=== PATIENT | female | born 1960 | race Caucasian/White ===

== ENCOUNTER 2020-10-25 13:42 | Inpatient (IN) | payer MEDICAID, SELFPAY ==
[~2020-10-25] VITALS: Ht 162.6 cm; Wt 90.7 kg
[2020-10-25 13:51] VITALS: BP_SYST 111
--- NOTE | 2020-10-25 13:51 | NUR ---
Placed in room 05 . Placed on cafeteria monitor, blood pressure machine and pulse oximeter. To gown for exam. Side rails up.
--- NOTE | 2020-10-25 13:55 | NUR ---
Pt came to ER with R leg swelling and pain when she bears weight rates pain 01/03. Pt resting in [facility] at this time, no distress noted, awaiting MD.
--- NOTE | 2020-10-25 14:00 | NUR ---
ER at bedside examining patient.
[2020-10-25] MEDS ORDERED: RIVA20TA PO ×2 (14:59)
[2020-10-25] MEDS ORDERED: RIVA15TA PO ×2 (14:59)
[2020-10-25] MEDS ORDERED: RIVAROXABAN 15 MG TABLET PO ONE (15:00)
--- NOTE | 2020-10-25 15:27 | NUR ---
Pt resting in rney comfortably no distress or complaints at this time.
[2020-10-25 15:40] LABS: BASOPHILS % (AUTO) 0.4 % (0.0-2.0); EOSINOPHILS # (AUTO) 0.1 K/uL (0.0-0.4); EOSINOPHILS % (AUTO) 1.1 % (0.0-4.0); LYMPHOCYTES % (AUTO) 12.3 % (20.5-51.5); MEAN CORPUSCULAR HEMOGLOBIN 19 pg (27-31); MEAN CORPUSCULAR HGB CONC 29 % (32-36); MEAN CORPUSCULAR VOLUME 66 fL (79.0-98.0); MONOCYTES # (AUTO) 0.9 K/uL (0.0-1.0); MONOCYTES % (AUTO) 10.8 % (1.7-9.3); NEUTROPHILS # (AUTO) 6.2 K/uL (1.8-7.7); NEUTROPHILS % (AUTO) 75.4 % (40.0-70.0); PLATELET COUNT (AUTO) 209 K/uL (130-430); RED BLOOD CELL COUNT(AUTO) 3.04 MIL/uL (4.2-6.2); RED CELL DISTRIBUTION WIDTH 21.3 % (9.0-15.0); WHITE BLOOD COUNT (AUTO) 8.2 K/uL (4.8-10.8)
[2020-10-25 15:44] LABS: INR 1.1 (0.8-1.2); PROTHROMBIN TIME 11.2 SECS (9.5-12.5)
[2020-10-25 15:46] LABS: HEMATOCRIT 20.2 % (36-48); HEMOGLOBIN 5.9 g/dL (12.0-16.0)
[2020-10-25 15:47] LABS: CALCIUM 8.6 mg/dL (8.4-11.0); CREATININE 1.01 mg/dL (0.55-1.30); POTASSIUM 3.4 mmol/L (3.5-5.1)
[2020-10-25 15:53] LABS: ALBUMIN 2.9 g/dL (3.4-4.8); TOTAL BILIRUBIN 0.6 mg/dL (0.0-1.0)
[2020-10-25 16:26] LABS: C-REACTIVE PROTEIN QUANT 13.4 mg/dL (0-0.5)
--- NOTE | 2020-10-25 17:30 | NUR ---
No meds per pt
--- NOTE | 2020-10-25 17:33 | NUR ---
Patient will be admitted to care of Susana. Admitted to Tele unit. Will go to room 101B. Belongings list completed. Complete and up to date summary report printed. SBAR report to be given at bedside with opportunity for questions.
[2020-10-25 18:00] VITALS: BP_SYST 115
[2020-10-25] MEDS ORDERED: ACETAMINOPHEN 325 MG TABLET PO PRN (18:00)
[2020-10-25] MEDS ORDERED: ALBUTEROL SULFATE 0.083% 2.5 MG/3 ML VIAL.NEB INH PRN (18:00)
[2020-10-25] MEDS ORDERED: MORPHINE 4 MG INJ. 4 MG/ML VIAL IVP PRN (18:00)
[2020-10-25] MEDS ORDERED: HYDROcodone/ACETAMIN 5-325 MG TAB (NORCO/ VICODIN) PO PRN (18:00)
[2020-10-25 18:17] VITALS: BP_SYST 133
[2020-10-25] MEDS ORDERED: NACL 0.9% 1,000 ML IV ONE (18:30)
--- NOTE | 2020-10-25 19:00 | NUR ---
Note Pt arrived on floor from ED at 1800. Pt ambulated from gurney to bed independently. Pt oriented to room and nursing routines and procedures. Pt wanted to eat her dinner before blood transfusion to be started. Call light within reach.
--- NOTE | 2020-10-25 19:30 | NUR ---
OPENING NOTES: Received report from dayshift nurse. Patient is in bed, alert and oriented with no s/s of distress or discomfort. Patient is on room air, tolerating well. Ensured all safety precautions. Bed is locked and in the lowest position with alarm on. Call light within reach.
[2020-10-25 20:00] VITALS: BP_SYST 117
[2020-10-25 20:17] VITALS: BP_SYST 117
--- NOTE | 2020-10-25 21:20 | NUR ---
DR. SIFUENTES AT BEDSIDE PER DR. SIFUENTES CT TO BE DONE IN AM - RADIOLOGY NOTIFIED
[2020-10-25 21:52] LABS: TOTAL IRON BIND. CAPACITY 452 ug/dL (250-450)
[2020-10-25] MEDS: PANTOPRAZOLE SODIUM 40 MG/VIAL (PROTONIX) IVP SCH (22:36)
[2020-10-25] MEDS: ENOXAPARIN SODIUM 100 MG/ML SYRINGE SUBCUT SCH (22:38)
--- NOTE | 2020-10-25 23:15 | NUR ---
BT INITIATION: Consent signed per agreeing to administration of blood. Blood has been type and crossmatched. Blood sent from blood bank. Information on unit of blood checked against patient wristband at bedside by two nurses. All information matches. Patient or responsible constitution party informed of potential complications associated with blood transfusion. Informed of possible transfusion reaction symptoms. Aware of need to notify nurse at once of itching, shortness of breath, flushing, feeling of impending doom, or other symptoms not previously present. Vital signs taken within 5 minutes prior to initiation of transfusion. RN will remain with patient for first 15 minutes of transfusion at which time vital signs will be re-assessed.
[2020-10-26] VITALS: BP_SYST 136
--- NOTE | 2020-10-26 03:45 | NUR ---
BT INITIATION: Consent signed per agreeing to administration of blood. Blood has been type and crossmatched. Blood sent from blood bank. Information on unit of blood checked against patient wristband at bedside by two nurses. All information matches. Patient or responsible republican informed of potential complications associated with blood transfusion. Informed of possible transfusion reaction symptoms. Aware of need to notify nurse at once of itching, shortness of breath, flushing, feeling of impending doom, or other symptoms not previously present. Vital signs taken within 5 minutes prior to initiation of transfusion. RN will remain with patient for first 15 minutes of transfusion at which time vital signs will be re-assessed.
--- NOTE | 2020-10-26 04:55 | NUR ---
CONSULT REASON CONSULT: DVT AND ANEMIA PERSON I SPOKE WITH: TIARA CONSULTING PHYSICIAN: DR. RIVERS RELAY SHOP SUPERVISOR PHONE NUMBER: [phone] ORDERING PHYSICIAN: DR. SIFUENTES
--- NOTE | 2020-10-26 07:00 | NUR ---
CLOSING NOTES: Patient is laying in bed, alert and oriented. She is in stable condition, tolerated blood transfusion well as ordered. All needs were met throughout shift. Will endorse to dayshift nurse.
[2020-10-26] MEDS ORDERED: IOHEXOL 350 mgI/mL, 150 ML INFUS..BTL IV ONE (07:40)
[2020-10-26 07:59] LABS: BASOPHILS # (AUTO) 0.1 K/uL (0.0-0.2); BASOPHILS % (AUTO) 0.7 % (0.0-2.0); EOSINOPHILS # (AUTO) 0.2 K/uL (0.0-0.4); HEMATOCRIT 26.5 % (36-48); HEMOGLOBIN 8.1 g/dL (12.0-16.0); LYMPHOCYTES # (AUTO) 0.9 K/uL (1.0-5.5); LYMPHOCYTES % (AUTO) 11.2 % (20.5-51.5); MEAN CORPUSCULAR HEMOGLOBIN 21 pg (27-31); MEAN CORPUSCULAR HGB CONC 31 % (32-36); MEAN CORPUSCULAR VOLUME 70 fL (79.0-98.0); MONOCYTES # (AUTO) 0.8 K/uL (0.0-1.0); MONOCYTES % (AUTO) 9.6 % (1.7-9.3); NEUTROPHILS # (AUTO) 6.2 K/uL (1.8-7.7); NEUTROPHILS % (AUTO) 75.5 % (40.0-70.0); PLATELET COUNT (AUTO) 211 K/uL (130-430); RED CELL DISTRIBUTION WIDTH 24.1 % (9.0-15.0); WHITE BLOOD COUNT (AUTO) 8.2 K/uL (4.8-10.8)
[2020-10-26 08:00] VITALS: BP_SYST 117
[2020-10-26 08:23] LABS: ALBUMIN 2.8 g/dL (3.4-4.8); CALCIUM 8.4 mg/dL (8.4-11.0); CREATININE 0.7 mg/dL (0.55-1.30); POTASSIUM 3.5 mmol/L (3.5-5.1); TOTAL BILIRUBIN 1.2 mg/dL (0.0-1.0)
[2020-10-26] MEDS ORDERED: *LOVENOX 1MG/KG Q12H/PHARMACY XX ONE (09:00)
--- NOTE | 2020-10-26 09:05 | NUR ---
CONSULTATION PAGED/CALLED Reason for Consultation: [] dvt, anemia Person Who was Notified: [] Charly Consulting Physician: [] DR SALAZAR Train Electronic Technician Specialty: [] CARDIO Ordering Physician: [] DR KAMARA
--- NOTE | 2020-10-26 09:13 | NUR ---
CONSULTATION PAGED/CALLED Reason for Consultation: dvt/anemia Person Who was Notified: heron Consulting Physician: darren krishnamurthy Ordering Physician: ronald jeronimo
[2020-10-26] MEDS ORDERED: GASTROGRAFIN 120 ML ONE ×2 (09:25→12:26)
[2020-10-26] MEDS: ENOXAPARIN SODIUM 100 MG/ML SYRINGE SUBCUT SCH ×2 (09:27→22:06)
[2020-10-26] MEDS: PANTOPRAZOLE SODIUM 40 MG/VIAL (PROTONIX) IVP SCH ×2 (09:28→22:04)
[2020-10-26 11:21] VITALS: BP_SYST 139
[2020-10-26] MEDS ORDERED: IRON DEXTRAN COMPLEX 25 MG in NS 50 ML IV ONE (12:00)
[2020-10-26 13:27] VITALS: BP_SYST 117
[2020-10-26] MEDS: CLINDAMYCIN 300 MG in D5W 50 ML IV SCH ×3 (13:48→23:36)
[2020-10-26 15:23] VITALS: BP_SYST 130
[2020-10-26 20:00] VITALS: BP_SYST 123
[2020-10-27 00:05] VITALS: BP_SYST 130
[2020-10-27] MEDS: CLINDAMYCIN 300 MG in D5W 50 ML IV SCH ×4 (05:37→23:17)
[2020-10-27] MEDS ORDERED: DIATR MEGLU/DIATRIZ SOD 30 ML SOLUTION PO ONE (07:32)
--- NOTE | 2020-10-27 07:53 | NUR ---
Opening note Received report from night nurse. Patient is alert and oriented x 4, sitting up in bed. On room air and tolerating well with no signs of shortness of breath noted. IV is patent, saline locked. Safety precautions in place. Bed locked and in lowest position. Call light within reach. Will continue to monitor.
[2020-10-27 08:00] VITALS: BP_SYST 124
[2020-10-27 08:06] LABS: IMMUNOGLOBULIN A, SERUM 200 mg/dL (87-352)
[2020-10-27 08:23] LABS: TOTAL IRON BIND. CAPACITY 416 ug/dL (250-450)
[2020-10-27] MEDS: ENOXAPARIN SODIUM 100 MG/ML SYRINGE SUBCUT SCH ×2 (09:03→21:22)
[2020-10-27] MEDS: PANTOPRAZOLE SODIUM 40 MG/VIAL (PROTONIX) IVP SCH ×2 (09:03→21:21)
[2020-10-27 09:31] LABS: BASOPHILS # (AUTO) 0.1 K/uL (0.0-0.2); BASOPHILS % (AUTO) 0.9 % (0.0-2.0); EOSINOPHILS # (AUTO) 0.2 K/uL (0.0-0.4); EOSINOPHILS % (AUTO) 3.2 % (0.0-4.0); HEMATOCRIT 27.8 % (36-48); HEMOGLOBIN 8.3 g/dL (12.0-16.0); LYMPHOCYTES # (AUTO) 1.2 K/uL (1.0-5.5); LYMPHOCYTES % (AUTO) 15.8 % (20.5-51.5); MEAN CORPUSCULAR HEMOGLOBIN 21 pg (27-31); MEAN CORPUSCULAR HGB CONC 30 % (32-36); MEAN CORPUSCULAR VOLUME 70 fL (79.0-98.0); MONOCYTES # (AUTO) 0.8 K/uL (0.0-1.0); MONOCYTES % (AUTO) 10.9 % (1.7-9.3); NEUTROPHILS # (AUTO) 5.3 K/uL (1.8-7.7); NEUTROPHILS % (AUTO) 69.2 % (40.0-70.0); PLATELET COUNT (AUTO) 270 K/uL (130-430); RED BLOOD CELL COUNT(AUTO) 3.98 MIL/uL (4.2-6.2); RED CELL DISTRIBUTION WIDTH 24.4 % (9.0-15.0); WHITE BLOOD COUNT (AUTO) 7.7 K/uL (4.8-10.8)
--- NOTE | 2020-10-27 09:45 | NUR ---
CT Patient taken to CT scan of abdomen and pelvis with contrast. Patient in stable condition. Will wait for return to unit.
[2020-10-27] MEDS: IRON DEXTRAN COMPLEX 100 MG in NS 100 ML IV SCH (10:08)
[2020-10-27 11:08] LABS: BILIRUBIN,URINE NEGATIVE (NEGATIVE); BLOOD, URINE NEGATIVE (NEGATIVE); CLARITY/URINE CLEAR (CLEAR); COLOR,URINE YELLOW (YELLOW); GLUCOSE,URINE NEGATIVE (NEGATIVE); KETONES,URINE NEGATIVE (NEGATIVE); LEUKOCYTE ESTERASE ,URINE 3+ (NEGATIVE); NITRITE, URINE NEGATIVE (NEGATIVE); PROTEIN URINE NEGATIVE (NEGATIVE); UROBILINOGEN,URINE 0.2 (0.2-1.0)
[2020-10-27 11:17] VITALS: BP_SYST 121
[2020-10-27 12:33] LABS: BACTERIA,URINE FEW /HPF (None Seen); CALCIUM OXALATE CRYSTALS,UR 0-10 /HPF (None Seen); RBC,URINE 0-3 /HPF (0-3)
[2020-10-27 15:16] VITALS: BP_SYST 130
--- NOTE | 2020-10-27 18:44 | NUR ---
Closing note Patient is alert and oriented x 4, sitting up in bed. On room air and tolerating well with no signs of shortness of breath noted. IV is patent, saline locked. Safety precautions in place. Bed locked and in lowest position. Call light within reach. Will endorse to night nurse.
[2020-10-27 20:00] VITALS: BP_SYST 115
[2020-10-28] VITALS: BP_SYST 124
[2020-10-28] MEDS: CLINDAMYCIN 300 MG in D5W 50 ML IV SCH ×3 (06:38→18:34)
[2020-10-28 06:58] LABS: BASOPHILS # (AUTO) 0.1 K/uL (0.0-0.2); BASOPHILS % (AUTO) 0.7 % (0.0-2.0); EOSINOPHILS # (AUTO) 0.3 K/uL (0.0-0.4); EOSINOPHILS % (AUTO) 4.3 % (0.0-4.0); HEMATOCRIT 29.6 % (36-48); HEMOGLOBIN 8.9 g/dL (12.0-16.0); LYMPHOCYTES # (AUTO) 1.6 K/uL (1.0-5.5); LYMPHOCYTES % (AUTO) 20.8 % (20.5-51.5); MEAN CORPUSCULAR HEMOGLOBIN 21 pg (27-31); MEAN CORPUSCULAR HGB CONC 30 % (32-36); MEAN CORPUSCULAR VOLUME 70 fL (79.0-98.0); MONOCYTES # (AUTO) 0.7 K/uL (0.0-1.0); MONOCYTES % (AUTO) 8.9 % (1.7-9.3); NEUTROPHILS # (AUTO) 5.1 K/uL (1.8-7.7); NEUTROPHILS % (AUTO) 65.3 % (40.0-70.0); PLATELET COUNT (AUTO) 305 K/uL (130-430); RED BLOOD CELL COUNT(AUTO) 4.23 MIL/uL (4.2-6.2); RED CELL DISTRIBUTION WIDTH 24.5 % (9.0-15.0); WHITE BLOOD COUNT (AUTO) 7.9 K/uL (4.8-10.8)
--- NOTE | 2020-10-28 07:03 | NUR ---
Nutrition Update Stanley Scale 18 noted. Pt admitted for Anemia, DVT Diet: Regular BMI: 34.3 kg/m2 RD to follow per nutrition care standards.
[2020-10-28 07:39] LABS: ALBUMIN 2.9 g/dL (3.4-4.8); CALCIUM 8.8 mg/dL (8.4-11.0); CREATININE 0.92 mg/dL (0.55-1.30); POTASSIUM 3.6 mmol/L (3.5-5.1); TOTAL BILIRUBIN 0.5 mg/dL (0.0-1.0)
--- NOTE | 2020-10-28 07:45 | NUR ---
AM NOTES PT IN BED. A/OX4. C/O OF MOD PAIN .IN LEFT LEG. WILL MEDICATE ORDERED. RES EVEN AND UNLABORED. VITALS STABLE . SAFETY/FALL PRECAUTIONS IN PLACE. BED LOCKED IN LOW POSITION.BED ALARM ON.CALL LIGHT WITHIN REACH.RT LEG REDDENED AND SWOLLEN .PEDAL PULSE PRESENT BUT WEAK ON RT LEG. ELEVATED ON PILLOW. ABLE TO WIGGLE TOES. DENIES ANY NUMBNESS OR TINGLING IN LEGS. POC DISCUSSED WITH PT. VERBALIZED UNDERSTANDING.WILL CONTINUE TO MONITOR
[2020-10-28 08:06] LABS: FOLATE (FOLIC ACID) 10.7 ng/mL (>3.0)
[2020-10-28 08:28] VITALS: BP_SYST 123
[2020-10-28 08:50] VITALS: BP_SYST 123
[2020-10-28] MEDS: ENOXAPARIN SODIUM 100 MG/ML SYRINGE SUBCUT SCH (09:13)
[2020-10-28] MEDS: PANTOPRAZOLE SODIUM 40 MG/VIAL (PROTONIX) IVP SCH ×2 (09:14→21:00)
[2020-10-28] MEDS: IRON DEXTRAN COMPLEX 100 MG in NS 100 ML IV SCH (09:24)
[2020-10-28 11:57] VITALS: BP_SYST 133
--- NOTE | 2020-10-28 11:58 | NUR ---
Rounding Note Dr. Clifford seen patient, updated with patient status, explained to pt about the plan of care, pt verbalized understanding. Pt resting comfortably and denies any pain at this time. As per Dr. Clifford, pt can ambulate, encouraged pt to ambulate in hallways and will assist pt with ambulation.
[2020-10-28 17:17] VITALS: BP_SYST 119
--- NOTE | 2020-10-28 17:59 | NUR ---
Rounding Note PT showered, ambulated to restroom, tolerated ambulation well, family at bedside eating dinner, denies any pain or shortness of breath,
--- NOTE | 2020-10-28 18:55 | NUR ---
Closing Note Patient is alert and oriented x 4, sitting up in bed. On room air and tolerating well with no signs of shortness of breath noted. IV is patent, saline locked. Safety precautions in place. Bed locked and in lowest position. Call light within reach. Will endorse to night nurse.
[2020-10-28 19:39] VITALS: BP_SYST 136
[2020-10-28] MEDS: APIXABAN 2.5 MG TABLET PO SCH (20:57)
--- NOTE | 2020-10-28 23:35 | NUR ---
Opening note Received pt. Pt resting in bed with HOB elevated, alert/awake/verbally responsive. ALOC x4. 0 SOB or distress noted, on RA. IV site RFA 20g patent and intact, 0 infiltration noted. Bed locked to lowest position, call light within reach. Safety precaution in place. Will continue to monitor.
[2020-10-29] MEDS: CLINDAMYCIN 300 MG in D5W 50 ML IV SCH ×3 (01:01→12:08)
[2020-10-29 01:05] VITALS: BP_SYST 136
--- NOTE | 2020-10-29 01:55 | NUR ---
Spoke with DR. Tobin. Pt request for lissa SILVA MD agrees.
--- NOTE | 2020-10-29 06:30 | NUR ---
Closing noted Pt resting in bed. Stable with no significant change. 0 c/o discomfort or pain noted. Vitals stable. Able to ambulate to bathroom, IV patent and intact saline locked. Bed to lowest with call light within reach. Safety precaution in place.
[2020-10-29] MEDS: PANTOPRAZOLE SODIUM 40 MG/VIAL (PROTONIX) IVP SCH (08:44)
[2020-10-29] MEDS: APIXABAN 2.5 MG TABLET PO SCH (08:45)
[2020-10-29] MEDS: IRON DEXTRAN COMPLEX 100 MG in NS 100 ML IV SCH (08:46)
[2020-10-29] MEDS ORDERED: DOCUSATE SODIUM 100 MG CAPSULE PO SCH (09:00)
[2020-10-29 09:21] VITALS: BP_SYST 120
--- NOTE | 2020-10-29 09:23 | NUR ---
Opening Note Receive patient AX4, resting in bed calmly, no SOB, vitals stable, bed in lowest position, call alarm within reach, RFA 20 gauge patent and infusing, right leg elevated on pillows and educated on plan of care and verbalized understanding.
[2020-10-29 09:45] LABS: BASOPHILS # (AUTO) 0.1 K/uL (0.0-0.2); BASOPHILS % (AUTO) 1.1 % (0.0-2.0); EOSINOPHILS # (AUTO) 0.3 K/uL (0.0-0.4); EOSINOPHILS % (AUTO) 4.4 % (0.0-4.0); HEMATOCRIT 27.8 % (36-48); HEMOGLOBIN 8.4 g/dL (12.0-16.0); LYMPHOCYTES # (AUTO) 1.2 K/uL (1.0-5.5); LYMPHOCYTES % (AUTO) 18.3 % (20.5-51.5); MEAN CORPUSCULAR HEMOGLOBIN 21 pg (27-31); MEAN CORPUSCULAR HGB CONC 30 % (32-36); MEAN CORPUSCULAR VOLUME 71 fL (79.0-98.0); MONOCYTES # (AUTO) 0.6 K/uL (0.0-1.0); MONOCYTES % (AUTO) 9.2 % (1.7-9.3); NEUTROPHILS # (AUTO) 4.4 K/uL (1.8-7.7); PLATELET COUNT (AUTO) 328 K/uL (130-430); RED BLOOD CELL COUNT(AUTO) 3.94 MIL/uL (4.2-6.2); WHITE BLOOD COUNT (AUTO) 6.6 K/uL (4.8-10.8)
--- NOTE | 2020-10-29 10:45 | NUR ---
Dr. Susana pan regarding labs and orders for discharge home today, will follow up. Addendum: 10/29/20 at 1112 by Silvano Shook RN Spoke with Dr. Meza regarding lab results and discharge home orders - patient is okay to discharge home today, Dr. Meza will call in prescription for Carina to the patient's pharmacy and Dr. Meza stated that he will speak with Dr. Clifford.
[2020-10-29 12:16] VITALS: BP_SYST 124
[2020-10-29 13:51] VITALS: BP_SYST 126
[2020-10-29 15:07] LABS: TRANSGLUTAMINASE IGA < 2 U/mL (0-3)
[2020-10-29 15:13] VITALS: BP_SYST 121
--- NOTE | 2020-10-29 16:15 | NUR ---
D/C Patient Patient given medication reconciliation form and D/C instructions. Exit Care provided. Patient verbalized understanding. MD discussed with patient the results and treatment provided. Patient in stable condition, ID band removed. IV catheter removed, intact and dressing applied, no active bleeding. Dr. Meza called in prescription for Eliquis for pt's preferred pharmacy. Patient educated on pain management. All belongings sent with patient.
[2020-10-30 04:06] LABS: ENDOMYSIAL ANTIBODY IGA Negative (Negative)
--- NOTE | 2020-10-30 08:13 | NUR ---
Disposition 01
== END 2020-10-29 16:15 | disposition home or self-care (01) | DRG 197 ==
LOC: SED 13:42 → STU 17:14 → SMU 17:33 → STU 17:33 → SMU 10-26 09:28
PROVIDERS: ADMIT Internal Medicine Hospice and Palliative Medicine; ATTEND Internal Medicine Hospice and Palliative Medicine
PROC: 30233N1 Transfusion of Nonautologous Red Blood Cells into Peripheral Vein, Percutaneous Approach (ICD-10-PCS; principal; 2020-10-25)
DX: I82.401 Acute embolism and thrombosis of unspecified deep veins of right lower extremity (principal); E44.0 Moderate protein-calorie malnutrition; L03.115 Cellulitis of right lower limb; D50.9 Iron deficiency anemia, unspecified; E66.9 Obesity, unspecified; K59.09 Other constipation; Z20.822 Contact with and (suspected) exposure to COVID-19; Z88.0 Allergy status to penicillin; Z88.2 Allergy status to sulfonamides; Z68.34 Body mass index [BMI] 34.0-34.9, adult; Z87.19 Personal history of other diseases of the digestive system; L03.90 Cellulitis, unspecified; E87.6 Hypokalemia; D63.8 Anemia in other chronic diseases classified elsewhere
CPT/HCPCS: 36415; 36430; 71045; 71275; 74250-TC; 76376; 80053; 81000; 82272; 82607; 82728; 82746; 82784; 83516; 83540; 83550; 83605; 85025; 85044; 85610-TC; 85730-TC; 86140; 86255; 86886; 86900; 86901; 86920; 87086; 93005; 93306; 93971; 94760; 99285; C9113; G0378; J1650; J1750; J3490; J7060; P9021; Q9963; Q9964; Q9967

== ENCOUNTER 2020-11-05 16:24 | Inpatient (IN) | payer MEDICAID, SELFPAY ==
[~2020-11-05] VITALS: Ht 162.6 cm; Wt 88.5 kg
[2020-11-05 16:25] VITALS: BP_SYST 125
--- NOTE | 2020-11-05 16:27 | NUR ---
Patient triaged and placed in waiting room. VSS and patient appears in no acute distress at this time. Accompanied by SELF, awaiting available bed, and MD notified of need for MSE.
--- NOTE | 2020-11-05 16:47 | NUR ---
Artis caputo in [facility] - 11/05/20 at 1903 by PRASHANT US AT BEDSIDE
--- NOTE | 2020-11-05 17:07 | NUR ---
PT CAME TO ER FOR COMPLAINTS OF RIGHT LEG PAIN, SWELLING AND REDNESS. PT STATED SHE CAME INTO ER 15 DAYS AGO FOR THE SAME THING AND WAS ADMIITED. PT WAS DISCHARGED AND SENT HOME WITH ELIQUIS AND CLINDAMYCIN. PT HAS BEEN TAKING THE MEDS REGULARLY AND COMPLAINS OF WORSENING SYMPTOMS. 10/03 PAIN. -SOB,-CP,- N/V.
[2020-11-05 17:08] LABS: HEMOGLOBIN 9.7 g/dL (12.0-16.0); MONOCYTES # (AUTO) 0.5 K/uL (0.0-1.0)
--- NOTE | 2020-11-05 17:09 | NUR ---
ER at bedside examining patient.
[2020-11-05 17:18] LABS: BASOPHILS # (AUTO) 0.1 K/uL (0.0-0.2); BASOPHILS % (AUTO) 1.1 % (0.0-2.0); EOSINOPHILS # (AUTO) 0.2 K/uL (0.0-0.4); EOSINOPHILS % (AUTO) 2.5 % (0.0-4.0); LYMPHOCYTES # (AUTO) 1.3 K/uL (1.0-5.5); LYMPHOCYTES % (AUTO) 19.6 % (20.5-51.5); MEAN CORPUSCULAR HEMOGLOBIN 22 pg (27-31); MEAN CORPUSCULAR HGB CONC 30 % (32-36); MEAN CORPUSCULAR VOLUME 74 fL (79.0-98.0); MONOCYTES % (AUTO) 8.6 % (1.7-9.3); NEUTROPHILS # (AUTO) 4.4 K/uL (1.8-7.7); NEUTROPHILS % (AUTO) 68.2 % (40.0-70.0); PLATELET COUNT (AUTO) 430 K/uL (130-430); RED BLOOD CELL COUNT(AUTO) 4.34 MIL/uL (4.2-6.2); RED CELL DISTRIBUTION WIDTH 31.4 % (9.0-15.0); WHITE BLOOD COUNT (AUTO) 6.4 K/uL (4.8-10.8)
[2020-11-05 17:20] LABS: CALCIUM 9.4 mg/dL (8.4-11.0); CREATININE 1.01 mg/dL (0.55-1.30); POTASSIUM 4.2 mmol/L (3.5-5.1)
[2020-11-05 17:26] LABS: ALBUMIN 3.5 g/dL (3.4-4.8); TOTAL BILIRUBIN 0.4 mg/dL (0.0-1.0)
[2020-11-05 17:31] LABS: INR 1.1 (0.8-1.2); PROTHROMBIN TIME 10.9 SECS (9.5-12.5)
--- NOTE | 2020-11-05 19:38 | NUR ---
pt is full code
--- NOTE | 2020-11-05 19:40 | NUR ---
BELONGINGS LIST DONE
[2020-11-05] MEDS ORDERED: FERR240T5 PO (19:44)
[2020-11-05] MEDS ORDERED: CLIN75CA2 PO (19:44)
[2020-11-05] MEDS ORDERED: OMEP40CA13 PO (19:44)
[2020-11-05] MEDS ORDERED: APIX5TAB4 PO (19:44)
--- NOTE | 2020-11-05 19:44 | NUR ---
Medication reconciliation completed with information provided by patient. Any prior medication reconciliation on file was reviewed and corrected.
--- NOTE | 2020-11-05 20:54 | NUR ---
Patient will be admitted to care of DR. SIFUENTES. Admitted to MEDSURGE unit. Will go to room 119B. Belongings list completed. Complete and up to date summary report printed. SBAR report to be given at bedside with opportunity for questions.
--- NOTE | 2020-11-05 21:02 | NUR ---
Transfer to [facility]. IV present no sign or symptom of infiltration.
--- NOTE | 2020-11-05 21:02 | NUR ---
# 20 gauge angiocath placed to R FOREARM. Use of asceptic technique. Opsite placed over site. Blood return noted. Blood for lab drawn from site. Flushed with 10 cc of normal saline. No evidence of infiltration noted. Patient tolerated well.
[2020-11-05] MEDS ORDERED: NALOXONE HCL 0.4 MG/ML AMP (NARCAN) IVP PRN (22:45)
[2020-11-05] MEDS ORDERED: MORPHINE 4 MG INJ. 4 MG/ML VIAL IVP PRN (22:45)
[2020-11-05] MEDS ORDERED: ACETAMINOPHEN 325 MG TABLET PO PRN (22:45)
[2020-11-05] MEDS ORDERED: HYDROcodone/ACETAMIN 5-325 MG TAB (NORCO/ VICODIN) PO PRN (22:45)
[2020-11-05] MEDS ORDERED: ALBUTEROL SULFATE 0.083% 2.5 MG/3 ML VIAL.NEB INH PRN (22:45)
[2020-11-05] MEDS: ENOXAPARIN SODIUM 100 MG/ML SYRINGE SUBCUT SCH (23:27)
[2020-11-05 23:52] VITALS: BP_SYST 115
[2020-11-06] VITALS (7 sets, daily range): BP systolic 111–153
--- NOTE | 2020-11-06 00:29 | NUR ---
ADMISSION NOTE PT RECEIVED LYING IN BED SUPINE WITH HOB ELEVATED 30 DEGREES AWAKE AND USING CELL PHONE. A/OX4, CALM AND COOPERATIVE. DENIES CHEST PAIN, DIZZINESS AND LIGHTHEADEDNESS. RLE PEDAL PULSE WEAK, ALL OTHER PERIPHERAL PULSES STRONG. 1+ PITTING EDEMA R FOOT, NON PITTING EDEMA RLE WITH ERYTHEMA AND WARM TO TOUCH. PT ALSO REPORTS PAIN 5/10 WITH TINGLING TO RLE, WORSENING WITH AMBULATION. PT REFUSES PAIN MEDS AT THIS TIME. RESPIRATIONS EVEN UNLABORED, CTA, RA, DENIES SOB. BS ACTIVE, ABD SOFT AND ROUND, NON TENDER, LBM 11/03. PT REPORTS CHRONIC CONSTIPATION. PT REPORTS CURRENTLY BEING TREATED FOR UTI (LAST DAY OF ANTIBIOTICS). DENIES URGENCY, PAIN AND BLEEDING ON URINATION HOWEVER REPORTS INCREASED FREQUENCY AND DARK URINE DESPITE DRINKING 4-5, 16OX BOTTLES OF WATER PER DAY. AMBULATORY WITH STEADY GAIT. SKIN INTACT. PT ORIENTED TO ROOM, USE OF CALL LIGHT, PLAN OF CARE. PT VERBALIZE UNDERSTANDING. PICTURES OF RLE ON ADMISSION LOCATED IN CHART. WATER PROVIDED. VSS. ALL NEEDS MET. BED IN LOWEST POSITION, SIDE RAILS X 2, CALL LIGHT WITHIN REACH
--- NOTE | 2020-11-06 03:59 | NUR ---
Consultation Paged Reason for Consultation: worsening DVT Was consult called: Y Person who was notified: hCarly Consulting Physician: Dr. Garner Ordering Physician: Dr. Tobin
[2020-11-06 07:09] LABS: BASOPHILS # (AUTO) 0.1 K/uL (0.0-0.2); BASOPHILS % (AUTO) 1.1 % (0.0-2.0); EOSINOPHILS # (AUTO) 0.2 K/uL (0.0-0.4); EOSINOPHILS % (AUTO) 3.1 % (0.0-4.0); HEMATOCRIT 28.7 % (36-48); HEMOGLOBIN 8.8 g/dL (12.0-16.0); LYMPHOCYTES # (AUTO) 1.1 K/uL (1.0-5.5); LYMPHOCYTES % (AUTO) 23.4 % (20.5-51.5); MEAN CORPUSCULAR HEMOGLOBIN 23 pg (27-31); MEAN CORPUSCULAR HGB CONC 31 % (32-36); MEAN CORPUSCULAR VOLUME 75 fL (79.0-98.0); MONOCYTES # (AUTO) 0.5 K/uL (0.0-1.0); MONOCYTES % (AUTO) 9.4 % (1.7-9.3); NEUTROPHILS # (AUTO) 3.1 K/uL (1.8-7.7); PLATELET COUNT (AUTO) 335 K/uL (130-430); RED BLOOD CELL COUNT(AUTO) 3.85 MIL/uL (4.2-6.2); RED CELL DISTRIBUTION WIDTH 30.9 % (9.0-15.0); WHITE BLOOD COUNT (AUTO) 4.9 K/uL (4.8-10.8)
[2020-11-06 07:31] LABS: ALBUMIN 2.9 g/dL (3.4-4.8); CALCIUM 8.8 mg/dL (8.4-11.0); CREATININE 0.7 mg/dL (0.55-1.30); POTASSIUM 3.8 mmol/L (3.5-5.1); TOTAL BILIRUBIN 0.4 mg/dL (0.0-1.0)
--- NOTE | 2020-11-06 07:38 | NUR ---
OPENING NOTE Patient resting in the bed. No acute distress. AAO x 4. Denied of pain. Skin warm and dry to touch. SL intact to RFA, no redness, no swelling, patent. Discussed the safety issue, use call light when needs help, and plan of care, verbally understanding. Safety measure maintained. Call light within reached. Bed in low position, side rails up. Refused bed alarm, risk and benefit explained, verbally understanding. Will continue to monitor.
--- NOTE | 2020-11-06 10:15 | NUR ---
SEEN AND EXAMINED BY SANDRA RIOS.
[2020-11-06] MEDS: PANTOPRAZOLE SODIUM 40 MG TAB PO SCH (10:21)
--- NOTE | 2020-11-06 10:21 | NUR ---
SEEN AND EXAMINED BY MARK BAER.
[2020-11-06] MEDS: ENOXAPARIN SODIUM 100 MG/ML SYRINGE SUBCUT SCH ×2 (10:22→21:58)
[2020-11-06] MEDS: CLINDAMYCIN 600 MG in D5W 50 ML IV SCH ×3 (12:42→23:39)
[2020-11-06] MEDS ORDERED: SOD FERRIC GLUC COMPLEX/SUC 125 MG in NS 100 ML IV SCH (13:00)
--- NOTE | 2020-11-06 13:28 | NUR ---
STOOL SAMPLE FOR OB SENT TO LAB.
--- NOTE | 2020-11-06 17:43 | NUR ---
URINE SPECIMEN SENT TO LAB.
--- NOTE | 2020-11-06 17:55 | NUR ---
IV RE-INSERTION: Complaining of pain to IV site. Restarted on LFA, gauge 22 with good blood returned. Flushed 5ml NS. Successful after one attempt. Resumed IV antibiotic Cleocin. Patient tolerated procedure well. Will observe for any signs of infiltration.
[2020-11-06 18:26] LABS: BILIRUBIN,URINE NEGATIVE (NEGATIVE); BLOOD, URINE NEGATIVE (NEGATIVE); CLARITY/URINE CLEAR (CLEAR); COLOR,URINE YELLOW (YELLOW); GLUCOSE,URINE NEGATIVE (NEGATIVE); KETONES,URINE NEGATIVE (NEGATIVE); LEUKOCYTE ESTERASE ,URINE NEGATIVE (NEGATIVE); NITRITE, URINE NEGATIVE (NEGATIVE); PH,URINE 6.5 (5.0-8.0); PROTEIN URINE NEGATIVE (NEGATIVE); UROBILINOGEN,URINE 0.2 (0.2-1.0)
--- NOTE | 2020-11-06 18:48 | NUR ---
CLOSING NOTE Patient resting in the bed. No acute distress. Denied of pain. Skin warm and dry to touch. SL intact to LFA, no redness, no swelling, patent. Safety measure maintained. Call light within reached. Bed in low position, side rails up. Refused bed alarm, risk and benefit explained, verbally understanding. Will endorse to night nurse.
--- NOTE | 2020-11-06 22:00 | NUR ---
ROUNDING NOTES Patient resting in bed - no s/s pain or distress noted. Respirations even and unlabored - head of bed elevated. IV site patent - no s/s redness, infection, or infiltration. Bed locked and in lowest position. Call light within reach - bed alarm on.
[2020-11-06] MEDS: POLYETHYLENE GLYCOL 3350, 17 GM/ POWD.PACK PO SCH (23:00)
[2020-11-07] VITALS: BP_SYST 124
[2020-11-07] MEDS: POLYETHYLENE GLYCOL 3350, 17 GM/ POWD.PACK PO SCH ×2 (00:13→08:57)
[2020-11-07] MEDS: CLINDAMYCIN 600 MG in D5W 50 ML IV SCH ×2 (05:41→12:59)
[2020-11-07 06:43] LABS: TOTAL IRON BIND. CAPACITY 428 ug/dL (250-450)
--- NOTE | 2020-11-07 07:45 | NUR ---
OPENING NOTES PATIENT AAO X 4. LUNGS BILATERALLY CLEAR. ABDOMEN SOFT AND NON DISTENDED. HAS IV ACCESS ON THE LEFT FOREARM #20. SALINE LOCK. NO S/S SYMPTOMS DISTRESS NOR PAIN NOTED. WILL CONTINUE TO MONITOR PATIENTS STATUS. BED IN LOW POSITION, ALARMED AND LOCKED. CALL LIGHTS WITHIN REACH.
[2020-11-07 08:57] VITALS: BP_SYST 129
[2020-11-07] MEDS: PANTOPRAZOLE SODIUM 40 MG TAB PO SCH (08:57)
[2020-11-07 11:35] LABS: BASOPHILS # (AUTO) 0.1 K/uL (0.0-0.2); BASOPHILS % (AUTO) 1.2 % (0.0-2.0); EOSINOPHILS # (AUTO) 0.2 K/uL (0.0-0.4); HEMATOCRIT 29.8 % (36-48); HEMOGLOBIN 8.7 g/dL (12.0-16.0); LYMPHOCYTES # (AUTO) 1.3 K/uL (1.0-5.5); MEAN CORPUSCULAR HEMOGLOBIN 22 pg (27-31); MEAN CORPUSCULAR HGB CONC 29 % (32-36); MEAN CORPUSCULAR VOLUME 77 fL (79.0-98.0); MONOCYTES # (AUTO) 0.6 K/uL (0.0-1.0); MONOCYTES % (AUTO) 12.4 % (1.7-9.3); NEUTROPHILS # (AUTO) 3.1 K/uL (1.8-7.7); NEUTROPHILS % (AUTO) 59.4 % (40.0-70.0); PLATELET COUNT (AUTO) 371 K/uL (130-430); WHITE BLOOD COUNT (AUTO) 5.2 K/uL (4.8-10.8)
[2020-11-07] MEDS ORDERED: LOVI80 SQ (11:45)
[2020-11-07] MEDS ORDERED: LOVI120 SQ (11:46)
[2020-11-07 12:16] VITALS: BP_SYST 123; BP_SYST 139
[2020-11-07 13:25] VITALS: BP_SYST 139
[2020-11-07] MEDS ORDERED: APIX5TAB4 PO (16:13)
--- NOTE | 2020-11-07 16:38 | NUR ---
CM note : Per Rachel, the pt is to dc home to resume Cosme JOY and with Lovenox and Eliquis prescription. [facility] BENITA was notified to f/u with pt tomorrow, the pt will need reenforce teaching for Lovenox SQ injection. The pt received the teaching from Chanelle Ramos before dc home as well.
--- NOTE | 2020-11-07 17:00 | NUR ---
REFUSED TO TAKE PHOTOS ON THE LEGS. SAID I AM OK. ALL BELONGINGS GIVEN TO THE PATIENT.
[2020-11-07 17:32] VITALS: BP_SYST 145
--- NOTE | 2020-11-07 18:00 | NUR ---
[facility] I D BAND REMOVED. IV ACCESS REMOVED. CALLED [facility] INSURANCE PAYS FOR IT, THEY PAY ONLY FOR 7 DAYS FOR LOVENOX INJECTION OF 90 MG SUBCUTANEOUSLY. INSTRUCTION GIVEN TO THE PATIENT, AND RETURN DEMONSTRATION AND VERBALIZED UNDERSTANDING. HANDWASHING INSTRUCTED BEFORE GIVEN INJECTION TO SELF, BUT HAS HOME HEALTH CHARTER JERRELL TO FOLLOW UP.
--- NOTE | 2020-11-07 18:15 | NUR ---
PRESCRIPTION ON ELIQUIZ TABLET AND LOVENOX INJECTION GIVEN INCLUDING THE DISCOUNT TRIAL FOR ELIQUIZ GIVEN BY [facility]. TO BE BROUGHT TO PHARMACY AT [facility] IN [facility].
--- NOTE | 2020-11-07 18:36 | NUR ---
PATIENT LEFT IN STABLE CONDITION. DISCHARGE INSTRUCTIONS GIVEN TO THE PATIENT. EXPLAINED REGARDING LOVENOX AND ELIQUIS 5 MG TABLET DAILY INCLUDING TEACHING HOW TO USED LOVENOX THERAPY INJECTIONS. FOR 7 DAYS ONLY AFTER LOVENOX THERAPY, SHE START ELIQUIS 5 MG PO TABLET. FOLLOW UP WITH PCP IN ONE TO TWO WEEKS. LEFT IN WHEELCHAIR WHEELED BY SALEEM MCCOY.
== END 2020-11-07 18:36 | disposition home or self-care (01) | DRG 197 ==
LOC: SED 16:24 → SMU 19:22 → INTOOBSV 19:22 → SMU 20:53 → OBSVTOIN 11-07 10:37
PROVIDERS: ADMIT Internal Medicine Hospice and Palliative Medicine; ATTEND Internal Medicine Hospice and Palliative Medicine
DX: I82.401 Acute embolism and thrombosis of unspecified deep veins of right lower extremity (principal); L03.115 Cellulitis of right lower limb; D50.9 Iron deficiency anemia, unspecified; F32.9 Major depressive disorder, single episode, unspecified; Z20.822 Contact with and (suspected) exposure to COVID-19; Z88.0 Allergy status to penicillin; Z88.2 Allergy status to sulfonamides; Z98.891 History of uterine scar from previous surgery; Z79.01 Long term (current) use of anticoagulants; Z79.2 Long term (current) use of antibiotics; Z79.899 Other long term (current) drug therapy
CPT/HCPCS: 36415; 80053; 81003; 82272; 82607; 82728; 82746; 83540; 83550; 85025; 85044; 85610-TC; 85730-TC; 87081; 93971; 99285; G0378; J1650; J2916; J3490; J7060

== ENCOUNTER 2022-06-03 14:45 | Emergency (ER) | payer MEDICAID ==
[~2022-06-03] VITALS: Ht 162.6 cm; Wt 88.5 kg
[2022-06-03 14:45] VITALS: BP_SYST 132
[~2022-06-03 14:45] MED LIST: APIX5TAB4 PO; CLIN75CA2 PO; FERR240T5 PO; LOVI120 SQ; OMEP40CA20 PO
--- NOTE | 2022-06-03 16:20 | NUR ---
Placed in room 08 . Placed on guest services officer, blood pressure machine and pulse oximeter. To gown for exam. Side rails up.
--- NOTE | 2022-06-03 16:22 | NUR ---
Pt brought by daughter, Soraida&Ox4, pt presents to ER with weakness and SOB, per patient she received a call from her doctor stating Hgb was 4.7, skin is pale, cap refill <3, pt able to follow commands, will cont to yuriy
[2022-06-03 16:24] LABS: BASOPHILS # (AUTO) 0.1 K/uL (0.0-0.2); BASOPHILS % (AUTO) 1.1 % (0.0-2.0); EOSINOPHILS # (AUTO) 0.2 K/uL (0.0-0.4); EOSINOPHILS % (AUTO) 2.8 % (0.0-4.0); LYMPHOCYTES # (AUTO) 1.1 K/uL (1.0-5.5); LYMPHOCYTES % (AUTO) 20.2 % (20.5-51.5); MEAN CORPUSCULAR HEMOGLOBIN 19 pg (27-31); MEAN CORPUSCULAR HGB CONC 29 % (32-36); MEAN CORPUSCULAR VOLUME 65 fL (79.0-98.0); MONOCYTES # (AUTO) 0.5 K/uL (0.0-1.0); MONOCYTES % (AUTO) 9.2 % (1.7-9.3); NEUTROPHILS # (AUTO) 3.6 K/uL (1.8-7.7); NEUTROPHILS % (AUTO) 66.7 % (40.0-70.0); PLATELET COUNT (AUTO) 305 K/uL (130-430); RED BLOOD CELL COUNT(AUTO) 2.41 MIL/uL (4.2-6.2); WHITE BLOOD COUNT (AUTO) 5.4 K/uL (4.8-10.8)
[2022-06-03 16:28] LABS: HEMOGLOBIN 4.6 g/dL (12.0-16.0)
[2022-06-03 16:29] LABS: HEMATOCRIT 15.8 % (36-48)
[2022-06-03 16:41] LABS: CALCIUM 8.9 mg/dL (8.4-11.0); CREATININE 0.89 mg/dL (0.55-1.30)
[2022-06-03 16:45] LABS: ALBUMIN 3.4 g/dL (3.4-4.8); TOTAL BILIRUBIN 0.4 mg/dL (0.0-1.0)
--- NOTE | 2022-06-03 16:45 | NUR ---
Dr Colunga evaluating patient at bedside
--- NOTE | 2022-06-03 17:18 | NUR ---
Blood requisitions sent to the lab for 3 units of plasma.
[2022-06-03] MEDS ORDERED: INHA1EAC52 MC ×2 (17:25)
[2022-06-03] MEDS ORDERED: ALBMDI INH ×2 (17:25)
[2022-06-03] MEDS ORDERED: CEPH250S PO ×2 (17:25)
[2022-06-03] MEDS ORDERED: ACETAMINOPHEN 500 MG TABLET PO ONE (18:00)
[2022-06-03] MEDS ORDERED: DIPHENHYDRAMINE INJ 50 MG/ML VIAL IVP ONE (18:00)
--- NOTE | 2022-06-03 18:30 | NUR ---
Unit# 1 of Packed red blood cells given starting at this time, will cont to monitor
--- NOTE | 2022-06-03 18:45 | NUR ---
Pt denies any SOB ,N/V or any reaction to blood transfusion, VSS
--- NOTE | 2022-06-03 19:48 | NUR ---
REC REPORT FROM GRAY COLMENARES. PT RESTING IN BED AWAKE WITH BLOOD TRANSFUSING. PT DENIES SOB, CP, AND DISCOMFORT AT THIS TIME. PT VSS, ON 2L NC O2 SAT AT 99%. SAFETY PRECAUTIONS IN PLACE AND CONNECTED TO MONITOR.
--- NOTE | 2022-06-03 22:38 | NUR ---
PT RESTING COMFORTABLY IN BED, EYES CLOSED. EVEN AND UNLABORED RESP NOTED, NAD. VSS. SAFETY PRECAUTIONS IN PLACE AND CONNECTED TO MONITOR.
--- NOTE | 2022-06-04 00:19 | NUR ---
PT RESTING IN BED WITH EYES CLOSED, SECOND TRANSFUSION COMPLETED. PT WITH EVEN AND UNLABORED RESP NOTED, VSS.
--- NOTE | 2022-06-04 01:37 | NUR ---
PT RESTING IN BED AWAKE AND RESTING. PT WITH 3RD BLOOD TRANSFUSION RUNNING, DENIES ANY DISCOMFORT, PAIN OR SOB. VSS. SAFETY PRECAUTIONS IN PLACE AND CONNECTED TO MONITOR.
--- NOTE | 2022-06-04 03:40 | NUR ---
PT AMBULATED TO RESTROOM WITH ASSISTANCE. PT NOW BACK IN BED RESTING, BLOOD TRANSFUSION CONTINUED. VSS. SAFETY PRECAUTIONS IN PLACE AND CONNECTED TO MONITOR.
[2022-06-04 05:00] VITALS: BP_SYST 122
--- NOTE | 2022-06-04 05:00 | NUR ---
Patient given written and verbal discharge instructions and verbalizes understanding. ER DR. PERALES discussed with patient the results and treatment provided. Patient in stable condition. ID arm band removed. IV catheter removed intact and dressing applied, no active bleeding. Patient educated on pain management and to follow up with PMD. Pain Scale 0. Opportunity for questions provided and answered. Medication side effect fact sheet provided.
== END 2022-06-04 05:00 | disposition home or self-care (01) ==
LOC: SED 14:45
DX: D64.9 Anemia, unspecified (principal); R79.9 Abnormal finding of blood chemistry, unspecified; R42 Dizziness and giddiness; Z88.0 Allergy status to penicillin; Z88.2 Allergy status to sulfonamides; Z79.899 Other long term (current) drug therapy; Z20.822 Contact with and (suspected) exposure to COVID-19
CPT/HCPCS: 99291; 36430; 96374; 87426; 80053; 83690; 85025; 86886; 86900; 86901; 86920; 36415; 99292; P9021; J1200

== ENCOUNTER 2023-07-31 21:44 | Emergency (ER) | payer MEDICAID ==
[~2023-07-31] VITALS: Ht 162.6 cm; Wt 73.5 kg
[2023-07-31 22:21] VITALS: BP_SYST 123; PULSE 61; RESP 16; TEMP 98.5; O2SAT 96
[2023-07-31] MEDS: FAMOTIDINE 20 MG TABLET PO ONE (23:00)
[2023-07-31] MEDS: DIPHENHYDRAMINE HCL 50 MG CAPSULE PO ONE (23:05)
[2023-07-31] MEDS: methylPREDNISolone SOD SUCC/PF 62.5 MG/ML VIAL IM ONE (23:15)
[2023-08-01] MEDS ORDERED: FAMO-132 PO (00:02)
[2023-08-01] MEDS ORDERED: EPIN0.3P3 IM (00:02)
[2023-08-01] MEDS ORDERED: PRED20TA PO (00:02)
[2023-08-01 00:13] VITALS: BP_SYST 122; PULSE 59; RESP 16; TEMP 98; O2SAT 97
== END 2023-08-01 00:13 | disposition home or self-care (01) ==
LOC: SED 21:44
DX: R22.0 Localized swelling, mass and lump, head (principal); T78.1XXA Other adverse food reactions, not elsewhere classified, initial encounter; F32.9 Major depressive disorder, single episode, unspecified; Z86.718 Personal history of other venous thrombosis and embolism; Z88.0 Allergy status to penicillin; Z88.2 Allergy status to sulfonamides; X58.XXXA Exposure to other specified factors, initial encounter
CPT/HCPCS: 96372; 99283; J2930; Q0163

== ENCOUNTER 2023-11-24 16:24 | Emergency (ER) | payer MEDICAID ==
[~2023-11-24] VITALS: Ht 162.6 cm; Wt 69.9 kg
[~2023-11-24 16:24] MED LIST changes: -CLIN75CA2 PO; +CLIN75CA3 PO; +EPIN0.3P3 IM; +FAMO-132 PO; +PRED20TA PO
[2023-11-24 16:32] VITALS: BP_SYST 153; PULSE 68; RESP 20; TEMP 98.3; O2SAT 96
[2023-11-24 18:14] LABS: LYMPHOCYTES # (AUTO) 1.3 K/uL (1.0-5.5)
[2023-11-24 18:37] LABS: BILIRUBIN,URINE NEGATIVE (NEGATIVE); BLOOD, URINE NEGATIVE (NEGATIVE); CLARITY/URINE CLEAR (CLEAR); COLOR,URINE YELLOW (YELLOW); GLUCOSE,URINE NEGATIVE (NEGATIVE); KETONES,URINE 1+ (NEGATIVE); LEUKOCYTE ESTERASE ,URINE NEGATIVE (NEGATIVE); NITRITE, URINE NEGATIVE (NEGATIVE); PROTEIN URINE NEGATIVE (NEGATIVE); UROBILINOGEN,URINE 0.2 (0.2-1.0)
[2023-11-24 18:39] LABS: BASOPHILS % (AUTO) 0.4 % (0.0-2.0); EOSINOPHILS % (AUTO) 0.5 % (0.0-4.0); HEMATOCRIT 46.6 % (36-48); LYMPHOCYTES % (AUTO) 18.7 % (20.5-51.5); MEAN CORPUSCULAR HEMOGLOBIN 32 pg (27-31); MEAN CORPUSCULAR HGB CONC 34 % (32-36); MEAN CORPUSCULAR VOLUME 94 fL (79.0-98.0); MONOCYTES # (AUTO) 0.5 K/uL (0.0-1.0); MONOCYTES % (AUTO) 7.9 % (1.7-9.3); NEUTROPHILS % (AUTO) 72.5 % (40.0-70.0); PLATELET COUNT (AUTO) 230 K/uL (130-430); RED BLOOD CELL COUNT(AUTO) 4.98 MIL/uL (4.2-6.2); RED CELL DISTRIBUTION WIDTH 12.4 % (9.0-15.0); WHITE BLOOD COUNT (AUTO) 6.8 K/uL (4.8-10.8)
[2023-11-24 18:46] LABS: PROTHROMBIN TIME 10.4 SECS (9.5-12.5)
[2023-11-24 18:50] LABS: ALBUMIN 4.5 g/dL (3.4-4.8); BILIRUBIN,DIRECT 0.2 mg/dL (0.0-0.3); CALCIUM 9.9 mg/dL (8.4-11.0); CREATININE 0.82 mg/dL (0.55-1.30); POTASSIUM 3.7 mmol/L (3.5-5.1); TOTAL PROTEIN, SERUM 8.1 g/dL (6.4-8.3)
[2023-11-24] MEDS ORDERED: OMEP20CA15 PO (20:46)
[2023-11-24] MEDS: PANTOPRAZOLE SODIUM 40 MG TAB PO ONE (21:07)
[2023-11-24 21:14] VITALS: BP_SYST 137; PULSE 64; RESP 21; TEMP 98.1; O2SAT 95
== END 2023-11-24 21:14 | disposition home or self-care (01) ==
LOC: SED 16:24
DX: R10.84 Generalized abdominal pain (principal); F32.A Depression, unspecified; Z85.3 Personal history of malignant neoplasm of breast; Z88.0 Allergy status to penicillin; Z88.2 Allergy status to sulfonamides; Z79.899 Other long term (current) drug therapy; Z79.2 Long term (current) use of antibiotics
CPT/HCPCS: 36415; 80048; 80076; 81001; 81003; 82150; 83605; 83690; 85025; 85610; 85730; 99285

== ENCOUNTER 2024-02-18 07:49 | Emergency (ER) | payer MEDICAID ==
[~2024-02-18] VITALS: Ht 165.1 cm; Wt 68.5 kg
[~2024-02-18 07:49] MED LIST changes: +OMEP20CA15 PO
[2024-02-18 08:08] VITALS: BP_SYST 127; PULSE 54; RESP 18; TEMP 97.4; O2SAT 98
[2024-02-18 10:02] LABS: BASOPHILS % (AUTO) 0.5 % (0.0-2.0); EOSINOPHILS % (AUTO) 0.4 % (0.0-4.0); HEMATOCRIT 47.3 % (36-48); HEMOGLOBIN 16.1 g/dL (12.0-16.0); LYMPHOCYTES % (AUTO) 14.9 % (20.5-51.5); MEAN CORPUSCULAR HEMOGLOBIN 32 pg (27-31); MEAN CORPUSCULAR HGB CONC 34 % (32-36); MEAN CORPUSCULAR VOLUME 95 fL (79.0-98.0); MONOCYTES # (AUTO) 0.5 K/uL (0.0-1.0); MONOCYTES % (AUTO) 7.3 % (1.7-9.3); NEUTROPHILS # (AUTO) 4.9 K/uL (1.8-7.7); NEUTROPHILS % (AUTO) 76.9 % (40.0-70.0); PLATELET COUNT (AUTO) 187 K/uL (130-430); RED CELL DISTRIBUTION WIDTH 12.8 % (9.0-15.0); WHITE BLOOD COUNT (AUTO) 6.4 K/uL (4.8-10.8)
[2024-02-18 10:20] LABS: PROTHROMBIN TIME 10.4 SECS (9.5-12.5)
[2024-02-18 10:22] LABS: ALANINE AMINOTRANSFERASE 26 U/L (12-78); ALBUMIN 4.6 g/dL (3.4-4.8); ANION GAP 10 (5-15); ASPARTATE AMINOTRANSFERASE 19 U/L (10-37); BILIRUBIN,DIRECT 0.3 mg/dL (0.0-0.3); CALCIUM 9.4 mg/dL (8.4-11.0); CARBON DIOXIDE 29 mmol/L (23-29); CHLORIDE 104 mmol/L (98-107); CREATINE KINASE, TOTAL 70 U/L (26-192); GFR AFRICAN AMERICAN 93 mL/min (>90); GLUCOSE 85 mg/dL (74-106); POTASSIUM 3.6 mmol/L (3.5-5.1); SODIUM SERUM 143 mmol/L (136-145); TOTAL BILIRUBIN 1.2 mg/dL (0.0-1.0); TOTAL PROTEIN, SERUM 8.2 g/dL (6.4-8.3); UREA NITROGEN, BLOOD 11 mg/dL (8-21)
[2024-02-18 10:27] LABS: GFR NON AFRICAN-AMERICAN 77 mL/min (>90)
[2024-02-18] MEDS ORDERED: APIX5TAB PO (11:17)
[2024-02-18 11:49] VITALS: BP_SYST 127; PULSE 54; RESP 18; TEMP 97.4; O2SAT 98
== END 2024-02-18 11:48 | disposition home or self-care (01) ==
LOC: SED 07:49
DX: I82.491 Acute embolism and thrombosis of other specified deep vein of right lower extremity (principal); F32.A Depression, unspecified; M79.605 Pain in left leg; R06.02 Shortness of breath; R20.0 Anesthesia of skin; R40.4 Transient alteration of awareness; Z86.718 Personal history of other venous thrombosis and embolism; Z88.0 Allergy status to penicillin; Z88.2 Allergy status to sulfonamides; Z79.01 Long term (current) use of anticoagulants; Z79.52 Long term (current) use of systemic steroids; Z79.899 Other long term (current) drug therapy
CPT/HCPCS: 36415; 70450-TC; 71045; 80048; 80076; 82550; 84484; 85025; 85610; 85730; 93005; 93970; 99285

== ENCOUNTER → 2024-02-22 | Emergency (ER) | payer MEDICAID ==
[~2024-02-22] VITALS: Ht 165.1 cm; Wt 64.4 kg
[~2024-02-22] MED LIST changes: +APIX5TAB PO
[2024-02-22 15:04] VITALS: BP_SYST 130; PULSE 69; RESP 18; TEMP 97.2; O2SAT 97
[2024-02-22 15:05] VITALS: BP_SYST 130; PULSE 69; RESP 18; TEMP 97.2; O2SAT 97
== END | disposition home or self-care (01) ==
LOC: SED 14:43
DX: I82.401 Acute embolism and thrombosis of unspecified deep veins of right lower extremity (principal); Z51.81 Encounter for therapeutic drug level monitoring; F32.A Depression, unspecified; Z86.718 Personal history of other venous thrombosis and embolism; Z88.0 Allergy status to penicillin; Z88.2 Allergy status to sulfonamides; Z79.01 Long term (current) use of anticoagulants; Z79.899 Other long term (current) drug therapy; Z79.52 Long term (current) use of systemic steroids
CPT/HCPCS: 99281